=== PATIENT | male | born 1945 | race Caucasian/White ===

== ENCOUNTER → 2020-06-30 12:24 | Outpatient (BNVA) | payer MEDICARE, BC, SELFPAY | PROVIDERS: Referring Provider Neurological Surgery; Visit Provider Specialist | DX: R42 Dizziness and giddiness (principal); G31.84 Mild cognitive impairment of uncertain or unknown etiology; Z86.73 Personal history of transient ischemic attack (TIA), and cerebral infarction without residual deficits; Z87.891 Personal history of nicotine dependence | CPT/HCPCS: 99205 ==

== ENCOUNTER 2020-07-20 10:40 | Outpatient (CLI) | payer MEDICARE, BC, SELFPAY ==
--- NOTE | 2020-07-20 11:00 | MR_ITS ---
WS: [id number] MRI BRAIN WITHOUT CONTRAST HISTORY: I63.9 Cerebral infarction, unspecified COMPARISON: 04/03/2020 TECHNIQUE: Diffusion imaging, multiplanar T1, T2 and FLAIR imaging obtained. No evidence for acute infarct or hemorrhage. [place]-white matter differentiation is normal. There is mild atrophy and mild chronic microvascular ischemic disease in the periventricular white ma tter. Similar distribution as 04/03/2020. No hemosiderin deposition. Ventricles and extra-axial spaces are normal. No inferior displacement of cerebellar tonsils. The sella turcica and pituitary gland are unremarkabl e. Posterior fossa is also unremarkable. Dural venous sinuses and [place] demonstrate no abnormality on this unenhanced studies. Paranasal sinuses: Clear. Mastoid air cells: Normal. Calvarium and scalp: Intact. MR/MR head wo con* [id number] IMPRESSION: 1. No evidence for an acute infarct or hemorrhage. 2. Mild atrophy and mild chronic microvascular ischemic disease. No change sin ce 04/03/2020.
--- NOTE | 2020-07-20 11:00 | MR_ITS ---
WS: [id number] MRA ANGIOGRAPHY [place] OF [place] HISTORY: I63.9 Cerebral infarction, unspecified COMPARISON: None available. TECHNIQUE: 3-D MR angiography is performed of the [place] of [place]. All images are reviewed including source images. Tortuous RIGHT vertebral artery extends to the LEFT of midline. Small caliber distal LEFT vertebral a rtery. Basilar artery is normal caliber. Intracranial portion of the internal carotid arteries are normal course and caliber. No significant a therosclerosis, stenosis or aneurysm identified. Middle and anterior cerebral arteries are both paten t with no significant disease. Anterior communicating artery is also normal. circulation RIGHT P-comm. RIGHT P-comm is dominant. Small caliber LEFT P-comm. MR/MR angio head wo con [id number] IMPRESSION: 1. No significant stenosis or aneurysm. 2. Small caliber distal LEFT vertebral artery is normal variation. 3. Dominant RIGHT posterior communicating cerebral artery.
[2020-07-20 11:35] LABS: Blood Urea Nitrogen 16 mg/dL (8-23)
--- NOTE | 2020-07-20 11:45 | MR_ITS ---
WS: [id number] EXAM: MR ANGIO NECK W CON*[id number] DATE OF EXAMINATION: 07/20/2020, left 42 hours COMPARISON: None. HISTORY: 74 years old with cerebral vascular accident. TECHNIQUE: MR angiography sequencing obtained through the neck with review of source images as well as rotationa l 3-D reconstruction imaging. FINDINGS: There is a bovine arch configuration. Right innominate artery is normal in appearance. Both carotid s ystems are normal in appearance. Internal carotid arteries are normal through the level of the skull base. There is a dominant-sized right vertebral artery as compared to a smaller left vertebral artery . Both vertebral arteries contribute to a single basilar artery. Both vertebral artery origins are un remarkable. MR/MR angio neck w con* [id number] IMPRESSION: Normal appearance to both common carotid arteries and internal carotid arteries through the level of the skull base. Dominant in size right vertebral artery as compared to the left but both verteb ral arteries contribute to a single basilar artery. No findings of aneurysm, va scular malformation or occlusion identified.
== END 2020-07-20 10:41 | disposition home or self-care (01) ==
LOC: RADSHAW 10:51
PROVIDERS: PCP Family Medicine; Visit Provider Specialist
DX: I63.9 Cerebral infarction, unspecified (principal); G31.9 Degenerative disease of nervous system, unspecified; I67.82 Cerebral ischemia
CPT/HCPCS: 70544; 70548; 70551; 82565; 84520; 95816; A9579

== ENCOUNTER → 2020-09-16 10:05 | Outpatient (BNVA) | payer MEDICARE, BC, SELFPAY | PROVIDERS: PCP Family Medicine; Visit Provider Specialist | DX: G31.83 Neurocognitive disorder with Lewy bodies (principal); F02.80 Dementia in other diseases classified elsewhere, unspecified severity, without behavioral disturbance, psychotic disturbance, mood disturbance, and anxiety; R42 Dizziness and giddiness; Z87.891 Personal history of nicotine dependence | CPT/HCPCS: 96116; 99214 ==

== ENCOUNTER → 2020-11-25 07:54 | Outpatient (BNVA) | payer MEDICARE, BC, SELFPAY | PROVIDERS: PCP Family Medicine; Visit Provider Specialist | DX: G20 Parkinson's disease (principal); G31.84 Mild cognitive impairment of uncertain or unknown etiology; Z87.891 Personal history of nicotine dependence | CPT/HCPCS: 99214 ==

== ENCOUNTER → 2021-04-06 09:03 | Outpatient (BNVA) | payer MEDICARE, SELFPAY | PROVIDERS: PCP Family Medicine; Visit Provider Specialist | DX: G31.83 Neurocognitive disorder with Lewy bodies (principal); F02.80 Dementia in other diseases classified elsewhere, unspecified severity, without behavioral disturbance, psychotic disturbance, mood disturbance, and anxiety; Z87.891 Personal history of nicotine dependence | CPT/HCPCS: 96116; 99215 ==

== ENCOUNTER → 2021-08-09 09:35 | Outpatient (BNVA) | payer MEDICARE, BC, SELFPAY | PROVIDERS: PCP Family Medicine; Visit Provider Specialist | DX: G20 Parkinson's disease (principal); G31.84 Mild cognitive impairment of uncertain or unknown etiology; Z87.891 Personal history of nicotine dependence | CPT/HCPCS: 99214 ==

== ENCOUNTER → 2022-08-08 08:37 | Outpatient (BNVA) | payer MEDICARE, BC, SELFPAY | PROVIDERS: PCP Family Medicine; Visit Provider Specialist | DX: G20 Parkinson's disease (principal); F06.70 Mild neurocognitive disorder due to known physiological condition without behavioral disturbance | CPT/HCPCS: 96116; 99214 ==

== ENCOUNTER → 2023-08-08 09:33 | Outpatient (BNVA) | payer MEDICARE, BC, SELFPAY | PROVIDERS: PCP Internal Medicine; Visit Provider Specialist | DX: R42 Dizziness and giddiness (principal); G31.84 Mild cognitive impairment of uncertain or unknown etiology | CPT/HCPCS: 99213 ==

== ENCOUNTER → 2024-08-07 09:24 | Outpatient (BNVA) | payer MEDICARE, BC, SELFPAY | PROVIDERS: PCP Internal Medicine; Visit Provider Specialist | DX: R42 Dizziness and giddiness (principal); G31.84 Mild cognitive impairment of uncertain or unknown etiology | CPT/HCPCS: 96116; 99214 ==

== ENCOUNTER → 2025-08-13 13:29 | Outpatient (BNVA) | payer MEDICARE, BC, SELFPAY | PROVIDERS: PCP Internal Medicine; Visit Provider Specialist | DX: G31.84 Mild cognitive impairment of uncertain or unknown etiology (principal); G20.A1 Parkinson's disease without dyskinesia, without mention of fluctuations; R03.0 Elevated blood-pressure reading, without diagnosis of hypertension | CPT/HCPCS: 36415; 82542; 83520; 99214 ==